=== PATIENT | male | born 1985 | race Caucasian/White ===

== ENCOUNTER 2022-05-17 04:43 | Emergency (ER) | payer OTHER ==
[~2022-05-17] VITALS: Ht 175.3 cm; Wt 94.3 kg
--- NOTE | 2022-05-17 05:11 | NUR ---
Dr. Renae at bedside for MSE.
[2022-05-17] MEDS ORDERED: OXYC-128 PO (05:37)
[2022-05-17] MEDS ORDERED: OXYCODONE/APAP 5-325 MG TABLET ONE (05:40)
[2022-05-17] MEDS ORDERED: OXYCODONE/APAP 5-325 MG TABLET PO ONE (05:45)
--- NOTE | 2022-05-17 05:55 | NUR ---
Patient discharged to home in stable condition. Written and verbal after care instructions given. Patient verbalizes understanding of instructions. Stressed follow up or return to ER for worsening s/s. Pt out of ER with steady gait, no acute signs of distress, VSS, all belongings taken, instructed not to drive, to be driven home via private vehicle by girlfriend.
[2022-05-17 05:56] VITALS: BP 139/99
== END 2022-05-17 05:56 | disposition home or self-care (01) ==
LOC: ER 04:43
DX: J02.8 Acute pharyngitis due to other specified organisms (principal); B97.89 Other viral agents as the cause of diseases classified elsewhere; I10 Essential (primary) hypertension; Z88.1 Allergy status to other antibiotic agents
CPT/HCPCS: 86403; 87070; A4663